=== PATIENT | female | born 1990 | race African-American/Black ===

== ENCOUNTER 2017-07-11 20:16 | Emergency (ER) | payer BC ==
[~2017-07-11] VITALS: Ht 160 cm; Wt 54.4 kg
[~2017-07-11 20:16] MED LIST: APAP500; CIPROFLOXACIN500 M1 PO; DERMOPLAST SPRA56 ML; HYDROCORTISONE30 G9; IBUPROFEN 800800 M1; LANOLIN56 GM; NEXPLANON68 MG SQ; NOHOMEMEDICATIONS; TUCKS1 EAC1
[2017-07-11 20:35] LABS: URINE BILIRUBIN 1+ (Negative); URINE BLOOD TRACE (Negative); URINE CLARITY SL CLOUDY; URINE COLOR YELLOW; URINE GLUCOSE-RANDOM* NEGATIVE (Negative); URINE KETONES 3+ (Negative); URINE LEUKOCYTES NEGATIVE (Negative); URINE NITRITE NEGATIVE (Negative); URINE PROTEIN (DIPSTICK) TRACE (Negative); URINE SPECIFIC GRAVITY >= 1.030 (1.005-1.035); URINE UROBILINOGEN 0.2 E.U./dl (0.2-1.0)
[2017-07-11 20:42] LABS: CASTS None Seen /LPF (None Seen); ICTOTEST (BILI CONFIRMATORY) Positive (Negative); MUCUS 0-3 Light strn/LPF (None Seen); SQUAMOUS 0-3 Few /LPF (0-3); URINE REDUCING SUBSTANCE NEGATIVE
[2017-07-11 20:43] LABS: BACTERIA None Seen /HPF (None Seen); CRYSTALS None Seen /LPF (None Seen); URINE RBC 0-2 Rare /HPF (0-2); URINE WBC None Seen /HPF (0-5)
[2017-07-11 20:44] LABS: ABSOLUTE NEUTROPHILS 7.1 thou/uL (1.4-8.2); BASOPHILS 0.4 % (0.0-2.0); EOSINOPHILS 0.3 % (0.0-3.0); HEMOGLOBIN 12.2 gm/dL (12.0-15.0); LYMPHOCYTES 14.9 % (24.0-44.0); MCH 28.1 pg (26.0-34.0); MCHC 33.1 g/dL (28.0-37.0); MCV 84.9 fL (80.0-100.0); MONOCYTES 2.7 % (1.0-8.0); PLATELET COUNT 298 thou/uL (150-400); POLYS 81.7 % (36.0-66.0); RBC 4.35 mil/uL (4.20-5.00); RDW 13.6 % (10.5-14.5); WBC 8.7 thou/uL (4.0-11.0)
[2017-07-11 20:52] LABS: CALCIUM 9.4 mg/dL (8.5-10.1); CREATININE 0.9 mg/dL (0.6-1.0); POTASSIUM 3.2 mmol/L (3.5-5.1)
[2017-07-11 20:58] LABS: ALBUMIN 4.2 g/dL (3.4-5.0); TOTAL BILIRUBIN 0.6 mg/dL (<0.1-1.0); TOTAL PROTEIN 7.9 g/dL (6.4-8.2)
[2017-07-11] MEDS ORDERED: PEPCID20 MG PO (22:48)
[2017-07-11] MEDS ORDERED: PHENERGAN 25 MG25 M1 PO (22:48)
[2017-07-11] MEDS ORDERED: BENTYL 10 MG CA10 M1 PO (22:48)
[2017-07-11 23:07] VITALS: BP 120/95
== END 2017-07-11 23:08 | disposition home or self-care (01) ==
LOC: ER 20:16
PROVIDERS: Physician Assistant
DX: R11.2 Nausea with vomiting, unspecified (principal); R10.9 Unspecified abdominal pain

== ENCOUNTER 2020-07-08 12:31 | Emergency (ER) | payer BC ==
[~2020-07-08] VITALS: Ht 162.6 cm; Wt 79.4 kg
[~2020-07-08 12:31] MED LIST changes: +BENTYL 10 MG CA10 M1 PO; +PEPCID20 MG PO; +PHENERGAN 25 MG25 M1 PO
[2020-07-08 12:44] VITALS: BP 132/80
[2020-07-08] MEDS ORDERED: FAMOTIDINE 20 M20 MG PO (12:47)
[2020-07-08] MEDS ORDERED: BENADRYL25 MG PO (12:47)
[2020-07-08] MEDS ORDERED: PREDNISONE 20 M20 MG PO (12:47)
== END 2020-07-08 13:07 | disposition home or self-care (01) ==
LOC: ER 12:31
DX: L23.9 Allergic contact dermatitis, unspecified cause (principal); L29.9 Pruritus, unspecified